=== PATIENT | male | born 1990 ===

== ENCOUNTER 2017-09-11 10:22 | Emergency (ER) | payer OTHER ==
[2017-09-11 11:02] VITALS: RESP 18; TEMP 98.3; BMI 25.0
--- NOTE | 2017-09-11 11:11 | ED PDOC ---
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 Patient notes the chest pain lasted for 10 minutes. Currently the patient is pain free. Patient denies any SOB, abdominal pain, nausea, vomiting, diarrhea, back pain, neck pain, or any other complaints. Time/Duration: Prior to Arrival Symptom Onset: Sudden Symptom Course: Unchanged Activities at Onset: Light Context: Home Past Medical History - Provider Review Nursing Documentation Reviewed: Yes - Cardiac Hx Cardiac Disorders: No - Pulmonary Hx Respiratory Disorders: No - Neurological Hx Neurological Disorder: No - HEENT Hx HEENT Disorder: No - Renal Hx Renal Disorder: No - Endocrine/Metabolic Hx Endocrine Disorders: No - Hematological/Oncological Hx Blood Disorders: No - Integumentary Hx Dermatological Disorder: No - Musculoskeletal/Rheumatological Hx Musculoskeletal Disorders: No - Gastrointestinal Hx Gastrointestinal Disorders: No - Genitourinary/Gynecological Hx Genitourinary Disorders: No - Psychiatric Hx Psychophysiologic Disorder: No Hx Substance Use: No Family/Social History - Physician Review Nursing Documentation Reviewed: Yes Family/Social History: Unknown Family HX Smoking Status: Never Smoked Hx Alcohol Use: Yes Frequency of alcohol use: Socially Hx Substance Use: No Allergies/Home Meds Allergies/Adverse Reactions: Allergies No Known Allergies Allergy (Verified 09/11/17 11:01) Review of Systems - Physician Review All systems were reviewed & negative as marked: Yes - Review of Systems Constitutional: Normal Eyes: Normal ENT: Normal Respiratory: Normal. absent: SOB, Cough Cardiovascular: Chest Pain Gastrointestinal: Normal. absent: Abdominal Pain Genitourinary Male: Normal. absent: Dysuria, Frequency Musculoskeletal: Normal. absent: Back Pain, Neck Pain Skin: Normal. absent: Rash Neurological: Normal. absent: Headache, Dizziness Endocrine: Normal Hemo/Lymphatic: Normal Psychiatric: Normal Physical Exam Vital Signs Reviewed: Yes Vital Signs Temp Pulse Resp BP Pulse Ox 09/11/17 12:16 98.3 F 60 18 118/73 95 09/11/17 10:55 98.3 F 66 18 132/69 98 Temperature: Afebrile Blood Pressure: Normal Pulse: Regular Respiratory Rate: Normal Appearance: Positive for: Well-Appearing, Non-Toxic, Comfortable Pain Distress: None Mental Status: Positive for: Alert and Oriented X 3 - Systems Exam Head: Present: Atraumatic, Normocephalic Pupils: Present: PERRL Extroacular Muscles: Present: EOMI Conjunctiva: Present: Normal Mouth: Present: Moist Mucous Membranes Neck: Present: Normal Range of Motion Respiratory/Chest: Present: Clear to Auscultation, Good Air Exchange. No: Respiratory Distress, Accessory Muscle Use Cardiovascular: Present: Regular Rate and Rhythm, Normal S1, S2. No: Murmurs Abdomen: No: Tenderness, Distention, Peritoneal Signs Back: Present: Normal Inspection Upper Extremity: Present: Normal Inspection. No: Cyanosis, Edema Lower Extremity: Present: Normal Inspection. No: Edema Neurological: Present: GCS=15, CN II-XII Intact, Speech Normal Skin: Present: Warm, Dry, Normal Color. 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 Plan: -- Labs -- CXR -- EKG -- Cardiac ISO Progress Notes: EKG reviewed, shows NSR 75 bpm. Normal [place]. 09/11/17 12:10 CXR reviewed, shows: No Active Disease. 09/11/17 12:43 Upon reevaluation, pt is feeling better. All labs and imaging are unremarkable. Pt will follow up with PMD. - Lab Interpretations Lab Results: 09/11/17 11:10 09/11/17 11:10 Lab Results 09/11/17 11:10: Sodium 141, Potassium 4.2, Chloride 103, Carbon Dioxide 26, Anion Gap 16, BUN 14, Creatinine 0.8, Est GFR ( Amer) > 60, Est GFR (Non- Af Amer) > 60, Random Glucose 99, Calcium 9.2, Total Bilirubin 0.6, AST 41, ALT 47, Alkaline Phosphatase 48, Lactate Dehydrogenase 499, Total Creatine Kinase 262 H, CK-MB (CK-2) 0.9, CK-MB (CK-2) % Cancelled, Troponin I < 0.01, Total Protein 7.6, Albumin 4.6, Globulin 3.1, Albumin/Globulin Ratio 1.5 09/11/17 11:10: WBC 8.1, RBC 5.19, Hgb 15.3, Hct 45.2, MCV 87.1, MCH 29.5, MCHC 33.8, RDW 11.8, Plt Count 298, MPV 10.1, Gran % 75.1 H, Lymph % (Auto) 17.2 L, [place] % (Auto) 6.3 H, Eos % (Auto) 0.9 L, Baso % (Auto) 0.5, Gran # 6.07, Lymph # (Auto) 1.4, [place] # (Auto) 0.5, Eos # (Auto) 0.1, Baso # (Auto) 0.04 - RAD Interpretation Radiology Orders: 09/11/17 11:09 CHEST PORTABLE [RAD] Stat - Scribe Statement The provider has reviewed the documentation as recorded by the Scribe Sydnee Bose All medical record entries made by the Scribe were at my direction and personally dictated by me. I have reviewed the chart and agree that the record accurately reflects my personal performance of the history, physical exam, medical decision making, and the department course for this patient. I have also personally directed, reviewed, and agree with the discharge instructions and disposition. Disposition/Present on Arrival - Present on Arrival Any Indicators Present on Arrival: No History of DVT/PE: No History of Uncontrolled Diabetes: No Urinary Catheter: No History of Decub. Ulcer: No History Surgical Site Infection Following: None - Disposition Have Diagnosis and Disposition been Completed?: Yes Diagnosis: Chest pain Disposition: HOME/ ROUTINE Disposition Time: 12:51 Condition: GOOD Discharge Instructions (ExitCare): Chest Pain, Chest Pain (ED) Additional Instructions: Follow up with your pcp and take motrin for pain. Return to the Ed if symptoms persist. Prescriptions: Ibuprofen [Motrin] 600 mg PO Q6 5 Days #20 tab Referrals: [facility] at [facility] [place] [Outside] - Follow up with primary [facility] at [facility] [Outside] - Follow up with primary [facility] [place] [Outside] - Follow up with primary Forms: [employer] (Portuguese)
[2017-09-11 11:32] LABS: BASO # 0.04 K/mm3 (0.0-2.0); BASO % 0.5 % (0.0-3.0); EOS # 0.1 (0.0-0.7); EOS % 0.9 % (1.5-5.0); GRAN # 6.07 (1.4-6.5); GRAN % 75.1 % (50.0-68.0); HEMOGLOBIN 15.3 g/dL (14.0-18.0); LYMPH # 1.4 (1.2-3.4); LYMPH % 17.2 % (22.0-35.0); MEAN CELL VOLUME 87.1 fl (80.0-105.0); MEAN CORPUSCULAR HEMOGLOBIN 29.5 pg (25.0-35.0); MEAN CORPUSCULAR HGB CONC 33.8 g/dl (31.0-37.0); MEAN PLATELET VOLUME 10.1 fl (7.0-11.0); MONO # 0.5 (0.1-0.6); MONO % 6.3 % (1.0-6.0); RBC 5.19 10^6/uL (3.5-6.1); RED CELL DISTRIBUTION WIDTH 11.8 % (11.5-14.5); WHITE BLOOD COUNT 8.1 10^3/ul (4.5-11.0)
--- NOTE | 2017-09-11 12:05 | RAD ---
Date of service: 09/11/2017 HISTORY: chest pain COMPARISON: No prior. FINDINGS: LUNGS: No active pulmonary disease. PLEURA: No significant pleural effusion identified, no pneumothorax apparent. CARDIOVASCULAR: Normal. OSSEOUS STRUCTURES: No significant abnormalities. VISUALIZED UPPER ABDOMEN: Normal. OTHER FINDINGS: None. IMPRESSION: No active disease.
[2017-09-11 12:10] LABS: ALB/GLOB RATIO 1.5 (1.1-1.8); ALBUMIN 4.6 g/dL (3.0-4.8); AST/SGOT 41 U/L (17-59); BLOOD UREA NITROGEN 14 mg/dL (7-21); CALCIUM 9.2 mg/dL (8.4-10.5); GFR AFRICAN-AMERICAN > 60; GFR NON-AFRICAN AMERICAN > 60; TROPONIN I < 0.01 ng/mL
[2017-09-11 12:11] LABS: ALT/SGPT 47 U/L (7-56)
[2017-09-11 12:14] LABS: CK-MB 0.9 ng/mL (0.0-3.6)
[2017-09-11 13:14] VITALS: BP 125/62; PULSE 72; O2SAT 98
--- NOTE | 2017-09-11 18:56 | CARD ---
APPROVED REPORT Date of service: 09/11/2017 EKG Measurement Heart [id number] <Conclusion> Poor data quality, interpretation may be adversely affected Normal sinus rhythm Normal ECG
== END 2017-09-11 13:13 | disposition home or self-care (01) ==
LOC: ED 10:22
DX: R07.9 Chest pain, unspecified (principal)